=== PATIENT | female | born 1935 | race Caucasian/White ===

== ENCOUNTER → 2016-10-12 | Outpatient (CLI) | payer OTHER, MEDICARE ==
[~2016-10-12] MED LIST: ATOR-54 PO; CALC500C70 PO; CHOL1CAP51 PO; CYAN10004 PO; OMEP20CA9 PO; OXYB5TAB74 PO; PRAM0.129 PO; PRED-301 PO; VERA120T2 PO; [UNRECOGNIZED DRUG - CODE] PO
[2016-10-12 09:23] LABS: HEMATOCRIT 35.8 % (37-47); MEAN CELL VOLUME 88.6 fL (80-100); MEAN CORPUSCULAR HEMOGLOBIN 31.2 pg (25-34); MEAN CORPUSCULAR HGB CONC 35.2 g/dl (32-36); MEAN PLATELET VOLUME 9.6 fL (7.4-10.4); PLATELET COUNT 262 K/uL (130-400); RED BLOOD COUNT 4.04 M/uL (4.2-5.4); WHITE BLOOD COUNT 5.64 K/uL (4.8-10.8)
[2016-10-12 09:39] LABS: ALB/GLOB RATIO 0.9 (0.9-2); ALKALINE PHOSPHATASE 120 U/L (45-117); ALT/SGPT 53 U/L (12-78); AST/SGOT 34 U/L (15-37); BLOOD UREA NITROGEN 18 mg/dl (7-18); BUN/CREATININE RATIO 18.3 (10-20); CALCIUM 9.2 mg/dl (8.5-10.1); CARBON DIOXIDE 26 mmol/L (21-32); CHLORIDE 91 mmol/L (98-107); CHOLESTEROL 208 mg/dl (0-200); CHOLESTEROL/HDL RATIO 3.6; CREATININE 0.96 mg/dl (0.60-1.20); GLUCOSE 94 mg/dl (70-99); HDL CHOLESTEROL 57 mg/dl; LDL CHOLESTEROL CALCULATED 126 mg/dl; POTASSIUM 4.2 mmol/L (3.5-5.1); SODIUM 131 mmol/L (136-145); TRIGLYCERIDES 125 mg/dl (0-150); VERY LOW DENSITY LIPOPROT CALC 25 mg/dl
== END | disposition home or self-care (01) ==
LOC: C.LABFOXMH 08:51
PROVIDERS: ATTEND Internal Medicine
DX: I10 Essential (primary) hypertension (principal); E78.00 Pure hypercholesterolemia, unspecified; R60.9 Edema, unspecified

== ENCOUNTER → 2016-10-19 | Outpatient (CLI) | payer OTHER, MEDICARE ==
--- NOTE | 2016-10-19 09:50 | DIAGNOSTIC IMAGING REPORT ---
CHEST 2 VIEWS ROUTINE CLINICAL HISTORY: Cough. COMPARISON STUDY: Chest radiograph August 29, 2011. FINDINGS: Lung volumes are normal. There is no consolidation to suggest pneumonia. Cardiac size is normal. Mediastinal contours are normal. Minimal linear right lower lung opacity is suggestive of atelectasis. There is no evidence of pulmonary edema. IMPRESSION: No acute cardiopulmonary findings. Electronically signed by: Salo Li M.D. 10/19/2016 9:49 AM Dictated Date/Time: 10/19/2016 9:44 AM
--- NOTE | 2016-10-21 14:44 | PULMONARY FUNCTION TEST ---
CLINICAL DATA: An 81-year-old female with height 63 inches and a weight of [address] Reinoso for evaluation of persistent cough. The patient has a history of smoking for 30 pack years. Spirometry pre- and post-bronchodilator and lung volumes were performed. FINDINGS: Prebronchodilator spirometry demonstrates minimal small airway obstruction. FVC was 101% of predicted. FEV1 was 103% of predicted. [id number] was 84% of predicted. There was slight improvement after inhaled bronchodilator. FVC did not change. FEV1 improved 1% to 104% of predicted. [id number] improved 13% to 94% of predicted. Lung volumes were normal without evidence of air trapping. IMPRESSION: Very mild obstructive small airways disease with slight improvement after inhaled bronchodilator. MTDD
== END | disposition home or self-care (01) ==
LOC: C.RC 09:21
PROVIDERS: ATTEND Internal Medicine
DX: R05 Cough (principal)

== ENCOUNTER → 2017-11-02 | Outpatient (CLI) | payer OTHER, MEDICARE ==
[~2017-11-02] MED LIST changes: +DTR/5 PO; -OXYB5TAB74 PO; +PRAM0.1212 PO; -PRAM0.129 PO
[2017-11-02 08:24] LABS: ALBUMIN 3.6 gm/dl (3.4-5.0); ALT/SGPT 34 U/L (12-78); BLOOD UREA NITROGEN 17 mg/dl (7-18); CALCIUM 9.2 mg/dl (8.5-10.1); CARBON DIOXIDE 27 mmol/L (21-32); CHOLESTEROL 178 mg/dl (0-200); CREATININE 0.93 mg/dl (0.60-1.20); GLUCOSE 88 mg/dl (70-99); POTASSIUM 3.9 mmol/L (3.5-5.1); SODIUM 133 mmol/L (136-145)
[2017-11-02 08:35] LABS: ALKALINE PHOSPHATASE 112 U/L (45-117); AST/SGOT 22 U/L (15-37); LDL CHOLESTEROL CALCULATED 97 mg/dl; TOTAL PROTEIN 7.6 gm/dl (6.4-8.2)
== END | disposition home or self-care (01) ==
LOC: C.LABFOXMH 07:46
PROVIDERS: ATTEND Internal Medicine
DX: E78.00 Pure hypercholesterolemia, unspecified (principal); E03.9 Hypothyroidism, unspecified